=== PATIENT | male | born 1980 | race African-American/Black ===

== ENCOUNTER 2021-05-06 17:08 | Inpatient (IN) | payer OTHER ==
[~2021-05-06] VITALS: Ht 177.8 cm; Wt 106.6 kg
[2021-05-06 17:49] LABS: BASOPHILS # (AUTO) 0.1 (0.0-0.1); BASOPHILS % 0.4 % (0.0-1.0); EOSINOPHILS # (AUTO) 0.4 (0.0-0.4); EOSINOPHILS % 2.8 % (0.0-6.0); HEMATOCRIT 23.9 % (38.2-49.6); HEMOGLOBIN 7.9 g/dL (14.0-18.0); LYMPHOCYTES # (AUTO) 1.3 (1.0-3.2); LYMPHOCYTES % 8.8 % (18.0-39.1); MEAN CORPUSCULAR HEMOGLOBIN 26.6 pg (28-32); MEAN CORPUSCULAR HGB CONC 33.1 g/dL (31-35); MEAN CORPUSCULAR VOLUME 80.5 fL (81-99); MONOCYTES # (AUTO) 2.2 (0.2-0.8); MONOCYTES % 14.7 % (4.4-11.3); NEUTROPHILS % 72.1 % (38.7-80.0); PLATELET COUNT 285 x10e3/uL (140-360); RED BLOOD COUNT 2.97 x10e6/uL (4.3-5.7); RED CELL DISTRIBUTION WIDTH 24.9 % (11.7-14.4)
[2021-05-06 17:52] LABS: INR 2.38; PROTHROMBIN TIME 27.6 seconds (11.9-14.5)
[2021-05-06 17:53] LABS: PARTIAL THROMBOPLASTIN TIME 39.9 seconds (23.8-35.5)
[2021-05-06 18:01] LABS: ALBUMIN/GLOBULIN RATIO 0.3 (0.8-2.0); ANION GAP 21.7 mmol/L (8-16); CALCIUM 9.4 mg/dL (8.4-10.2); CREATININE, SERUM 3.74 mg/dL (0.72-1.25); POTASSIUM 3.7 mmol/L (3.5-5.1)
[2021-05-06] MEDS ORDERED: SODIUM CHLORIDE 0.9% 500ML 500 ML IV STA (19:24)
[2021-05-06] MEDS: SODIUM CHLORIDE 0.9% 1000ML 1,000 ML IV SCH (21:04)
[2021-05-06] MEDS ORDERED: MORPHINE SULFAT30 M2 PO (22:17)
[2021-05-06] MEDS ORDERED: AMLODIPINE BESYL5 MG PO (22:17)
[2021-05-06] MEDS ORDERED: HYDROCHLOROTHIA25 MG (22:17)
[2021-05-06 22:24] VITALS: BP 113/80
[2021-05-06 23:00] VITALS: BP 113/80
[2021-05-07] VITALS (7 sets, daily range): BP systolic 102–125; BP diastolic 60–87
[2021-05-07 06:14] LABS: BASOPHILS % 0.3 % (0.0-1.0); EOSINOPHILS # (AUTO) 0.4 (0.0-0.4); HEMOGLOBIN 7.7 g/dL (14.0-18.0); LYMPHOCYTES # (AUTO) 1.4 (1.0-3.2); LYMPHOCYTES % 10.1 % (18.0-39.1); MEAN CORPUSCULAR HEMOGLOBIN 26.5 pg (28-32); MEAN CORPUSCULAR HGB CONC 32.1 g/dL (31-35); MEAN CORPUSCULAR VOLUME 82.5 fL (81-99); MONOCYTES # (AUTO) 1.8 (0.2-0.8); NEUTROPHILS # (AUTO) 9.7 (2.1-6.9); NEUTROPHILS % 72.4 % (38.7-80.0); PLATELET COUNT 282 x10e3/uL (140-360); RED BLOOD COUNT 2.91 x10e6/uL (4.3-5.7); RED CELL DISTRIBUTION WIDTH 25.2 % (11.7-14.4)
[2021-05-07 06:37] LABS: ANION GAP 18.8 mmol/L (8-16); CALCIUM 9.1 mg/dL (8.4-10.2); CREATININE, SERUM 3.83 mg/dL (0.72-1.25); POTASSIUM 3.8 mmol/L (3.5-5.1)
[2021-05-07 07:52] LABS: FERRITIN 1420.41 ng/mL (21.81-274.66)
[2021-05-07] MEDS: HYDROMORPHONE 1MG/1ML INJ IV PRN ×2 (08:00→19:50)
[2021-05-07] MEDS: SODIUM CHLORIDE 0.9% 1000ML 1,000 ML IV SCH ×3 (08:41→19:30)
[2021-05-07] MEDS: ONDANSETRON HCL INJ 2MG/ML 2ML 2 MG/ML VIAL IV PRN ×2 (08:45→19:50)
[2021-05-07] MEDS: SENNOSIDES 8.6 MG TAB PO SCH (09:00)
[2021-05-07] MEDS: AMLODIPINE BESYLATE 5 MG TAB PO SCH (09:00)
[2021-05-07] MEDS: DOCUSATE SODIUM 100 MG CAP PO SCH (09:00)
[2021-05-07] MEDS ORDERED: INFLUENZA VIRUS VAC SPLIT INJ 0.5 ML SYR IM ONE (09:00)
[2021-05-07] MEDS: FOLIC ACID 1 MG TAB PO SCH (09:00)
[2021-05-07] MEDS: HYDROCHLOROTHIAZIDE 25 MG TAB PO SCH (09:00)
[2021-05-08] VITALS (7 sets, daily range): BP systolic 116–122; BP diastolic 75–89
[2021-05-08] MEDS: SODIUM CHLORIDE 0.9% 1000ML 1,000 ML IV SCH ×4 (01:03→13:11)
[2021-05-08 05:05] LABS: BASOPHILS # (AUTO) 0.1 (0.0-0.1); BASOPHILS % 0.4 % (0.0-1.0); EOSINOPHILS # (AUTO) 0.4 (0.0-0.4); EOSINOPHILS % 2.9 % (0.0-6.0); HEMATOCRIT 24.3 % (38.2-49.6); HEMOGLOBIN 7.6 g/dL (14.0-18.0); LYMPHOCYTES # (AUTO) 1.1 (1.0-3.2); LYMPHOCYTES % 8.1 % (18.0-39.1); MEAN CORPUSCULAR HEMOGLOBIN 26.4 pg (28-32); MEAN CORPUSCULAR HGB CONC 31.3 g/dL (31-35); MEAN CORPUSCULAR VOLUME 84.4 fL (81-99); MONOCYTES % 14.2 % (4.4-11.3); NEUTROPHILS # (AUTO) 10.3 (2.1-6.9); NEUTROPHILS % 73.4 % (38.7-80.0); PLATELET COUNT 304 x10e3/uL (140-360); RED BLOOD COUNT 2.88 x10e6/uL (4.3-5.7); RED CELL DISTRIBUTION WIDTH 25.4 % (11.7-14.4)
[2021-05-08 05:22] LABS: ALBUMIN/GLOBULIN RATIO 0.3 (0.8-2.0); ANION GAP 21.5 mmol/L (8-16); CALCIUM 8.9 mg/dL (8.4-10.2); CREATININE, SERUM 4.51 mg/dL (0.72-1.25); POTASSIUM 4.5 mmol/L (3.5-5.1)
[2021-05-08] MEDS: DOCUSATE SODIUM 100 MG CAP PO SCH (08:36)
[2021-05-08] MEDS: FOLIC ACID 1 MG TAB PO SCH (08:36)
[2021-05-08] MEDS: SENNOSIDES 8.6 MG TAB PO SCH (08:36)
[2021-05-08] MEDS: FERROUS SULFATE 325 MG TAB PO SCH (08:37)
[2021-05-08] MEDS: HYDROCHLOROTHIAZIDE 25 MG TAB PO SCH (08:37)
[2021-05-08] MEDS: AMLODIPINE BESYLATE 5 MG TAB PO SCH (08:38)
[2021-05-08] MEDS: ONDANSETRON HCL INJ 2MG/ML 2ML 2 MG/ML VIAL IV PRN ×2 (11:30→15:14)
[2021-05-08] MEDS: HYDROMORPHONE 1MG/1ML INJ IV PRN ×3 (11:30→18:35)
[2021-05-08 15:37] LABS: CLARITY,URINE TURBID (CLEAR); COLOR,URINE AMBER (YELLOW); KETONES,URINE NEGATIVE (NEGATIVE); LEUKOCYTE ESTERASE ,URINE TRACE (NEGATIVE); NITRITE,URINE NEGATIVE (NEGATIVE); PROTEIN,URINE DIPSTICK >=300 (NEGATIVE)
[2021-05-08 15:48] LABS: AMORPHOUS SEDIMENT,URINE MANY (FEW); BACTERIA,URINE FEW /HPF; WBC,URINE (MAN) 0-5 /HPF (0-5)
[2021-05-08 15:58] LABS: CREATININE,URINE RANDOM 147.3 mg/dL (63-166)
[2021-05-08] MEDS ORDERED: FUROSEMIDE INJ 10 MG/ML 4 ML VIAL IV ONE (16:00)
[2021-05-08 16:27] LABS: TOTAL PROTEIN, URINE 361.3 mg/dL (1-14)
[2021-05-09] VITALS (7 sets, daily range): BP systolic 117–128; BP diastolic 72–84
[2021-05-09 05:03] LABS: BASOPHILS # (AUTO) 0.1 (0.0-0.1); BASOPHILS % 0.4 % (0.0-1.0); EOSINOPHILS # (AUTO) 0.4 (0.0-0.4); EOSINOPHILS % 2.9 % (0.0-6.0); HEMATOCRIT 24.2 % (38.2-49.6); HEMOGLOBIN 7.6 g/dL (14.0-18.0); LYMPHOCYTES # (AUTO) 1.2 (1.0-3.2); LYMPHOCYTES % 8.4 % (18.0-39.1); MEAN CORPUSCULAR HEMOGLOBIN 26.5 pg (28-32); MEAN CORPUSCULAR HGB CONC 31.4 g/dL (31-35); MEAN CORPUSCULAR VOLUME 84.3 fL (81-99); MONOCYTES % 13.9 % (4.4-11.3); NEUTROPHILS # (AUTO) 10.7 (2.1-6.9); NEUTROPHILS % 73.5 % (38.7-80.0); PLATELET COUNT 274 x10e3/uL (140-360); RED BLOOD COUNT 2.87 x10e6/uL (4.3-5.7); RED CELL DISTRIBUTION WIDTH 25.6 % (11.7-14.4)
[2021-05-09 05:20] LABS: ALBUMIN 2.1 g/dL (3.5-5.0); ALBUMIN/GLOBULIN RATIO 0.3 (0.8-2.0); ANION GAP 21.5 mmol/L (8-16); CALCIUM 9.2 mg/dL (8.4-10.2); CREATININE, SERUM 5.26 mg/dL (0.72-1.25); POTASSIUM 4.5 mmol/L (3.5-5.1)
[2021-05-09] MEDS: DOCUSATE SODIUM 100 MG CAP PO SCH (09:00)
[2021-05-09] MEDS: HYDROCHLOROTHIAZIDE 25 MG TAB PO SCH (09:00)
[2021-05-09] MEDS: SENNOSIDES 8.6 MG TAB PO SCH (09:00)
[2021-05-09] MEDS: AMLODIPINE BESYLATE 5 MG TAB PO SCH (09:00)
[2021-05-09] MEDS: FOLIC ACID 1 MG TAB PO SCH (09:00)
[2021-05-09] MEDS: FERROUS SULFATE 325 MG TAB PO SCH (09:00)
[2021-05-09] MEDS ORDERED: SODIUM CHLORIDE 0.9% 250ML 250 ML ONE (09:20)
[2021-05-09] MEDS ORDERED: LIDOCAINE HCL 1% LOCAL INJ 20 ML VIAL ONE (09:20)
[2021-05-09] MEDS ORDERED: HEPARIN SOD (PORCINE) 1000 UNIT/ML SDV ONE ×2 (09:34→20:44)
[2021-05-09] MEDS ORDERED: FENTANYL CITRATE/PF 100MCG/2 ML INJ ONE (09:34)
[2021-05-09] MEDS ORDERED: MIDAZOLAM HCL 2 MG/2 ML VIAL ONE (09:34)
[2021-05-09] MEDS: FUROSEMIDE INJ 10 MG/ML 4 ML VIAL IV SCH (12:11)
[2021-05-09] MEDS: HYDROMORPHONE 1MG/1ML INJ IV PRN (18:15)
[2021-05-09] MEDS ORDERED: SODIUM CHLORIDE 0.9% 1000ML 1,000 ML ONE (18:31)
[2021-05-10] VITALS (8 sets, daily range): BP systolic 106–127; BP diastolic 65–78
[2021-05-10] MEDS: HYDROMORPHONE 1MG/1ML INJ IV PRN ×4 (00:59→22:05)
[2021-05-10 06:05] LABS: BASOPHILS # (AUTO) 0.1 (0.0-0.1); BASOPHILS % 0.5 % (0.0-1.0); EOSINOPHILS # (AUTO) 0.3 (0.0-0.4); EOSINOPHILS % 2.6 % (0.0-6.0); HEMATOCRIT 23.6 % (38.2-49.6); HEMOGLOBIN 7.4 g/dL (14.0-18.0); LYMPHOCYTES # (AUTO) 1.1 (1.0-3.2); LYMPHOCYTES % 8.3 % (18.0-39.1); MEAN CORPUSCULAR HEMOGLOBIN 26.5 pg (28-32); MEAN CORPUSCULAR HGB CONC 31.4 g/dL (31-35); MEAN CORPUSCULAR VOLUME 84.6 fL (81-99); MONOCYTES # (AUTO) 1.7 (0.2-0.8); MONOCYTES % 13.4 % (4.4-11.3); NEUTROPHILS # (AUTO) 9.5 (2.1-6.9); NEUTROPHILS % 74.3 % (38.7-80.0); PLATELET COUNT 228 x10e3/uL (140-360); RED BLOOD COUNT 2.79 x10e6/uL (4.3-5.7)
[2021-05-10 06:24] LABS: ALBUMIN/GLOBULIN RATIO 0.3 (0.8-2.0); ANION GAP 20.3 mmol/L (8-16); CALCIUM 8.6 mg/dL (8.4-10.2); CREATININE, SERUM 5.5 mg/dL (0.72-1.25); POTASSIUM 4.3 mmol/L (3.5-5.1)
[2021-05-10] MEDS ORDERED: EPOETIN ALFA-EPBX 10,000 UNIT/ML VIAL SC SCH (08:30)
[2021-05-10] MEDS: AMLODIPINE BESYLATE 5 MG TAB PO SCH (09:00)
[2021-05-10] MEDS: HYDROCHLOROTHIAZIDE 25 MG TAB PO SCH (09:00)
[2021-05-10] MEDS: FUROSEMIDE INJ 10 MG/ML 4 ML VIAL IV SCH (09:49)
[2021-05-10] MEDS: DOCUSATE SODIUM 100 MG CAP PO SCH (09:49)
[2021-05-10] MEDS: FERROUS SULFATE 325 MG TAB PO SCH (09:50)
[2021-05-10] MEDS: SENNOSIDES 8.6 MG TAB PO SCH (09:50)
[2021-05-10] MEDS: FOLIC ACID 1 MG TAB PO SCH (09:52)
[2021-05-10] MEDS ORDERED: HEPARIN SOD (PORCINE) 1000 UNIT/ML SDV IV PRN (11:00)
[2021-05-10] MEDS ORDERED: SODIUM CHLORIDE 0.9% 250ML 500 ML IV PRN (11:00)
[2021-05-10] MEDS ORDERED: MANNITOL 25% 12.5GM/50 ML VIAL IV PRN (11:00)
[2021-05-10] MEDS ORDERED: ALBUMIN 25% 12.5GM 0.25 GM/ML BTL IV PRN (11:00)
[2021-05-10] MEDS ORDERED: SODIUM CHLORIDE 0.9% 1000ML 2,000 ML IV PRN (11:00)
[2021-05-11] VITALS (7 sets, daily range): BP systolic 92–127; BP diastolic 63–89
[2021-05-11] MEDS: HYDROMORPHONE 1MG/1ML INJ IV PRN ×4 (02:26→16:45)
[2021-05-11] MEDS ORDERED: HYDROMORPHONE 1MG/1ML INJ IV ONE ×2 (06:00→19:00)
[2021-05-11] MEDS ORDERED: SODIUM CHLORIDE 0.9% 1000ML 250 ML IV SCH (06:00)
[2021-05-11] MEDS: ONDANSETRON HCL INJ 2MG/ML 2ML 2 MG/ML VIAL IV PRN (06:19)
[2021-05-11 06:23] LABS: BASOPHILS # (AUTO) 0.1 (0.0-0.1); BASOPHILS % 0.5 % (0.0-1.0); EOSINOPHILS # (AUTO) 0.8 (0.0-0.4); EOSINOPHILS % 3.5 % (0.0-6.0); LYMPHOCYTES # (AUTO) 5.4 (1.0-3.2); LYMPHOCYTES % 24.6 % (18.0-39.1); MEAN CORPUSCULAR VOLUME 87.1 fL (81-99); MONOCYTES # (AUTO) 3.8 (0.2-0.8); MONOCYTES % 17.2 % (4.4-11.3); NEUTROPHILS # (AUTO) 11.6 (2.1-6.9); NEUTROPHILS % 52.8 % (38.7-80.0); PLATELET COUNT 237 x10e3/uL (140-360); RED BLOOD COUNT 2.41 x10e6/uL (4.3-5.7); RED CELL DISTRIBUTION WIDTH 26.9 % (11.7-14.4)
[2021-05-11 06:29] LABS: HEMOGLOBIN 6.5 g/dL (14.0-18.0)
[2021-05-11] MEDS ORDERED: SODIUM CHLORIDE 0.9% 250ML 250 ML IV ONE ×2 (06:45→11:15)
[2021-05-11 06:50] LABS: ALBUMIN 1.8 g/dL (3.5-5.0); ALBUMIN/GLOBULIN RATIO 0.3 (0.8-2.0); ANION GAP 25.3 mmol/L (8-16); CALCIUM 8.6 mg/dL (8.4-10.2); CREATININE, SERUM 5.9 mg/dL (0.72-1.25); POTASSIUM 4.3 mmol/L (3.5-5.1)
[2021-05-11] MEDS ORDERED: SODIUM CHLORIDE 0.9% 1000ML 250 ML IV ONE (08:15)
[2021-05-11] MEDS: DOCUSATE SODIUM 100 MG CAP PO SCH (09:00)
[2021-05-11] MEDS: SENNOSIDES 8.6 MG TAB PO SCH (09:00)
[2021-05-11] MEDS: FERROUS SULFATE 325 MG TAB PO SCH (09:26)
[2021-05-11] MEDS: FOLIC ACID 1 MG TAB PO SCH (09:26)
[2021-05-11] MEDS: SODIUM CHLORIDE 0.9% 1000ML 1,000 ML IV SCH ×2 (09:26→19:30)
[2021-05-11] MEDS: PIPERACILLIN/TAZOBACTAM 2.25 GM in SODIUM CHLORIDE 0.9% 50ML 50 ML IV SCH ×2 (09:30→17:11)
[2021-05-11 10:33] LABS: INR 3.6; PROTHROMBIN TIME 37.8 seconds (11.9-14.5)
[2021-05-11 10:34] LABS: PARTIAL THROMBOPLASTIN TIME 41.2 seconds (23.8-35.5)
[2021-05-11] MEDS ORDERED: SODIUM CHLORIDE 0.9% 250ML 250 ML ONE (10:56)
[2021-05-11] MEDS ORDERED: PIPERACILLIN/TAZOBACTAM 2.25 GM in SODIUM CHLORIDE 0.9% 50ML 50 ML IV SCH (14:00)
== END 2021-05-11 19:19 | disposition expired | DRG 435 ==
LOC: ER 17:54 → ERHOLD 19:26 → MED/SURG 21:54
PROVIDERS: ADMIT Internal Medicine; ATTEND Internal Medicine
PROC: 0JH63XZ Insertion of Tunneled Vascular Access Device into Chest Subcutaneous Tissue and Fascia, Percutaneous Approach (ICD-10-PCS; principal; 2021-05-09)
PROC: 02HV33Z Insertion of Infusion Device into Superior Vena Cava, Percutaneous Approach (ICD-10-PCS; 2021-05-09)
PROC: 5A1D70Z Performance of Urinary Filtration, Intermittent, Less than 6 Hours Per Day (ICD-10-PCS; 2021-05-09)
PROC: 30243K1 Transfusion of Nonautologous Frozen Plasma into Central Vein, Percutaneous Approach (ICD-10-PCS; 2021-05-11)
PROC: 30243N1 Transfusion of Nonautologous Red Blood Cells into Central Vein, Percutaneous Approach (ICD-10-PCS; 2021-05-11)
DX: C78.7 Secondary malignant neoplasm of liver and intrahepatic bile duct (principal); N17.0 Acute kidney failure with tubular necrosis; E43 Unspecified severe protein-calorie malnutrition; R18.0 Malignant ascites; C18.9 Malignant neoplasm of colon, unspecified; D68.4 Acquired coagulation factor deficiency; C79.89 Secondary malignant neoplasm of other specified sites; D62 Acute posthemorrhagic anemia; K94.01 Colostomy hemorrhage; C78.2 Secondary malignant neoplasm of pleura; C78.02 Secondary malignant neoplasm of left lung; C78.01 Secondary malignant neoplasm of right lung; C77.2 Secondary and unspecified malignant neoplasm of intra-abdominal lymph nodes; C77.1 Secondary and unspecified malignant neoplasm of intrathoracic lymph nodes; E87.1 Hypo-osmolality and hyponatremia; C79.51 Secondary malignant neoplasm of bone; N17.9 Acute kidney failure, unspecified; Z68.33 Body mass index [BMI] 33.0-33.9, adult; D63.1 Anemia in chronic kidney disease; Z20.822 Contact with and (suspected) exposure to COVID-19; D52.9 Folate deficiency anemia, unspecified; N05.8 Unspecified nephritic syndrome with other morphologic changes; R16.1 Splenomegaly, not elsewhere classified; G89.3 Neoplasm related pain (acute) (chronic)
CPT/HCPCS: 36415; 36558; 71045; 74176; 74470; 76770; 76937; 77001; 80048; 80053; 81001; 82570; 82607; 82728; 82746; 83540; 83605; 84156; 84466; 85025; 85045; 85610; 85730; 86705; 86706; 86850; 86900; 86920; 87340; 90962; 94799; 99284; C1769; C1892; J1170; J1644; J1940; J2001; J2250; J2405; J2543; J3010; J7030; J7040; J7050; P9016; P9017; U0002